=== PATIENT | female | born 1950 | race Caucasian/White ===

== ENCOUNTER 2016-07-28 10:05 | Emergency (ER) | payer MEDICARE, BC, OTHER ==
[~2016-07-28] VITALS: Ht 160 cm; Wt 81.8 kg
[~2016-07-28 10:05] MED LIST: ASPI81TA82 PO; ATOR20TA PO; CALTTAB6 PO; CEPH500C3 PO; GLUCTAB PO; INSU100V2 SQ; INSU100V3 SC; LEVO75TA3 PO; MAXZ25 PO; METO25 PO; MOTI25CH PO; OMEP20TA PO
[2016-07-28 10:07] VITALS: BP 176/81; PULSE 66; RESP 18; TEMP 97.8; O2SAT 96
[2016-07-28] MEDS ORDERED: INSU100V2 SQ (10:24)
[2016-07-28] MEDS ORDERED: ASPI1TAB69 PO (10:24)
[2016-07-28] MEDS ORDERED: ATOR20TA15 PO (10:24)
[2016-07-28] MEDS ORDERED: METF500T PO (10:24)
[2016-07-28] MEDS ORDERED: OMEP20TA PO (10:24)
[2016-07-28] MEDS ORDERED: INSU100V3 SQ (10:24)
[2016-07-28] MEDS ORDERED: MAXZTAB PO (10:24)
[2016-07-28] MEDS ORDERED: METO25TA3 PO (10:24)
[2016-07-28] MEDS ORDERED: LEVO88TA2 PO (10:24)
[2016-07-28] MEDS ORDERED: PRED20 PO (10:29)
[2016-07-28] MEDS ORDERED: ZANT300T PO (10:29)
--- NOTE | 2016-07-28 10:29 | PD ---
HPI Chief Complaint: Facial Pain or Swelling Time Seen by Provider: 10:18 Travel History International Travel<30 days: No Contact w/Intl Traveler<30days: No Traveled to known affect area: No History of Present Illness HPI 66-year-old female complaining the patient itching and swelling. Patient states that the symptoms started 2 days ago. Patient has history of frequent facial swelling itching and rash. 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 Patient denies any fever chills. Patient denies any problem with swallowing. Patient denies any chest pain or shortness of breath. Patient has been taking Zyrtec at home for the itching. PFSH Past Medical History Hx Anticoagulant Therapy: Yes (81MG ASA) Cardiovascular Problems: Yes (HTN) High Cholesterol: Yes Coronary Artery Disease: Yes Diabetes: Yes (TYPE 2 ) GERD: Yes Hypertension: Yes Neurologic: Yes (CHAVEZ'S PALSY) ?: Not Past Surgical History Hysterectomy: Yes Social History Alcohol Use: No Tobacco Use: No Substance Use: No Allergies-Medications (Allergen,Severity, Reaction): Coded Allergies: No Known Allergies (Unverified , 07/28/16) Reported Meds & Prescriptions Reported Meds & Active Scripts Active Reported Maxzide-25 (Triamterene-Hydrochlorothiazide) 37.5-25 Mg Tab 1 Tab PO DAILY Omeprazole 20 Mg Tab 20 Mg PO DAILY Metoprolol Tartrate 25 Mg Tab 25 Mg PO BID Metformin (Metformin HCl) 500 Mg Tab 500 Mg PO QID With meals Levothyroxine (Levothyroxine Sodium) 88 Mcg Tab 88 Mcg PO DAILY Humulin N Inj (Insulin Human NPH) 1,000 Unit/10 Ml Vial 45 Units SQ Humulin R Inj (Insulin Human Regular) 1,000 Unit/10 Ml Vial 35 Units SQ TIDAC Max dose at bedtime:( )units; sugars < 70,(0)units; sugars 150-199,(5)units; sugars 200-249,(10)units; sugars 250-299,(15)units; sugars 300-349,(20)units; sugars more than 349,(25)units. Atorvastatin (Atorvastatin Calcium) 20 Mg Tab 20 Mg PO HS Aspirin 81 Mg Tabdr 81 Mg PO DAILY Review of Systems General / Constitutional: No: Fever Eyes: No: Visual changes HENT: No: Headaches Cardiovascular: No: Chest Pain or Discomfort Respiratory: No: Shortness of Breath Gastrointestinal: No: Abdominal Pain Genitourinary: No: Dysuria Musculoskeletal: No: Pain Skin: Positive Rash, Positive Itching Neurologic: No: Weakness Psychiatric: No: Depression Endocrine: No: Polydipsia Hematologic/Lymphatic: No: Easy Bruising Physical Exam Narrative GENERAL: Well-nourished, well-developed patient. SKIN: Focused skin assessment warm/dry. HEAD: Normocephalic. EYES: No scleral icterus. No injection or drainage. NECK: Supple, trachea midline. No JVD or lymphadenopathy. CARDIOVASCULAR: Regular rate and rhythm without murmurs, gallops, or rubs. RESPIRATORY: Breath sounds equal bilaterally. No accessory muscle use. GASTROINTESTINAL: Abdomen soft, non-tender, nondistended. MUSCULOSKELETAL: No cyanosis, or edema. BACK: Nontender without obvious deformity. No CVA tenderness. Patient has patchy rash on the face and forehead, hives, with mild increase in heat. Nontender on palpation. Data Data Last Documented VS Vital Signs Date Time Temp Pulse Resp B/P Pulse Ox O2 Delivery O2 Flow Rate FiO2 07/28/16 10:07 97.8 66 18 176/81 96 MDM Medical Decision Making Medical Screen Exam Complete: Yes Emergency Medical Condition: Yes Differential Diagnosis Differential diagnosis including contact dermatitis, allergic dermatitis, allergic reaction. Narrative Course 66-year-old female with itching rash on the face. Decadron 8 mg IM. Diagnosis Primary Impression: Allergic dermatitis Patient Instructions: General Instructions Additional Instructions: Continue with Zyrtec as directed. Take medications as directed. Follow-up with personal physician. Return if worse. Med/Other Pt SpecificInfo: Prescription(s) given Scripts Ranitidine (Zantac)300 Mg Vhh192 Mg PO DAILY #10 TAB Ref 0 Prov:Patrice Meyers MD 07/28/16 Prednisone 20 Mg Tab20 Mg PO BID #14 TAB Ref 0 Prov:Patrice Meyers MD 07/28/16 Disposition: 01 DISCHARGE HOME Condition: Stable Patrice Meyers MD Jul 28, 2016 10:29
[2016-07-28] MEDS ORDERED: DEXAMETHASONE SOD PHOS 4 MG/ML VIAL IM ONE (10:30)
== END 2016-07-28 10:48 | disposition home or self-care (01) ==
LOC: PHED 10:05
DX: L23.9 Allergic contact dermatitis, unspecified cause (principal)
CPT/HCPCS: 96372; 99283; J1100

== ENCOUNTER 2017-04-11 10:44 | Emergency (ER) | payer MEDICARE, BC, OTHER ==
[~2017-04-11] VITALS: Ht 157.5 cm; Wt 83.0 kg
[~2017-04-11 10:44] MED LIST changes: +ASPI1TAB69 PO; -ASPI81TA82 PO; -ATOR20TA PO; +ATOR20TA15 PO; -CALTTAB6 PO; -CEPH500C3 PO; -GLUCTAB PO; -INSU100V3 SC; +INSU100V3 SQ; -LEVO75TA3 PO; +LEVO88TA2 PO; -MAXZ25 PO; +MAXZTAB PO; +METF500T PO; -METO25 PO; +METO25TA3 PO; -MOTI25CH PO; -OMEP20TA PO; +OMEP20TA93 PO; +PRED20 PO; +ZANT300T PO
[2017-04-11 10:47] VITALS: BP 221/91; PULSE 60; RESP 16; TEMP 98.3; O2SAT 95
[2017-04-11] MEDS ORDERED: LOSARTAN 50 MG TAB PO ONE (11:15)
[2017-04-11] MEDS ORDERED: HYDROCHLOROTHIAZIDE 25 MG TAB PO ONE (11:15)
[2017-04-11] MEDS ORDERED: ASPI81CH6 CHEW (11:23)
--- NOTE | 2017-04-11 11:24 | RADRPT ---
EXAM DATE/TIME: 04/11/2017 11:10 [facility] COMPARISON: No previous studies available for comparison. INDICATIONS : Cough x 3 days. High blood pressure sent by urgent care. MEDICAL HISTORY : Diabetes mellitus type II. Hypercholesterolemia. Gastroesophageal reflux disease. Garcia's palsy. h ypertension. cad. SURGICAL HISTORY : Hysterectomy. ENCOUNTER: Initial ACUITY: 3 days PAIN SCORE: 0/10 LOCATION: chest FINDINGS: PA and lateral views of the chest demonstrate the lungs to be symmetrically aerated without evidence of mass, infiltrate or effusion. The cardiomediastinal contours are unremarkable. Osseous structure s are intact. CONCLUSION: No acute disease. Josh Simeon Jr., MD on April 11, 2017 at 11:21 Board Certified Radiologist. This report was verified electronically.
[2017-04-11 11:29] VITALS: BP 217/84
--- NOTE | 2017-04-11 11:37 | PD ---
HPI Chief Complaint: Cold / Flu Symptoms Time Seen by Provider: 11:01 Travel History International Travel<30 days: No Contact w/Intl Traveler<30days: No Traveled to known affect area: No History of Present Illness HPI 66-year-old female presents with cough and congestion over the past 3 days. She states she has not taken her blood pressure medication yet this morning. She states she went to an urgent care and because of her pressure they sent her here. She denies any chest pain, shortness of breath, fever or other concurrent complaints. She states her last sugar was 190. She denies specific modifying factors. She states that she follows with her primary doctor regularly. Quality is productive. Severity is frequent per patient. PFSH Past Medical History Hx Anticoagulant Therapy: Yes (81MG ASA) Atrial Fibrillation: Yes Cardiovascular Problems: Yes (HTN) High Cholesterol: Yes Coronary Artery Disease: Yes Diabetes: Yes (TYPE 2 ) Patient Takes Glucophage: No GERD: Yes Hypertension: Yes Neurologic: Yes (CHAVEZ'S PALSY) Influenza Vaccination: No ?: Not Past Surgical History Hysterectomy: Yes Social History Alcohol Use: Yes (RARELY) Tobacco Use: No Substance Use: No Allergies-Medications (Allergen,Severity, Reaction): Coded Allergies: No Known Allergies (Verified Adverse Reaction, Unknown, 04/11/17) Reported Meds & Prescriptions Reported Meds & Active Scripts Active Reported Aspirin Low Dose (Aspirin) 81 Mg Chew 81 Mg CHEW DAILY Maxzide-25 (Triamterene-Hydrochlorothiazide) 37.5-25 Mg Tab 1 Tab PO DAILY Omeprazole 20 Mg Tab 20 Mg PO DAILY Metoprolol Tartrate 25 Mg Tab 25 Mg PO BID Metformin (Metformin HCl) 500 Mg Tab 500 Mg PO QID With meals Levothyroxine (Levothyroxine Sodium) 88 Mcg Tab 75 Mcg PO DAILY Humulin N Inj (Insulin Human NPH) 1,000 Unit/10 Ml Vial 40 Units SQ Humulin R Inj (Insulin Human Regular) 1,000 Unit/10 Ml Vial 30 Units SQ TIDAC Max dose at bedtime:( )units; sugars < 70,(0)units; sugars 150-199,(5)units; sugars 200-249,(10)units; sugars 250-299,(15)units; sugars 300-349,(20)units; sugars more than 349,(25)units. Atorvastatin (Atorvastatin Calcium) 20 Mg Tab 20 Mg PO HS Review of Systems Except as stated in HPI: all other systems reviewed are Neg Physical Exam Narrative General: No apparent distress, well appearing ENT: Posterior oropharyngx clear without exudate or erythema, external auditory canals are normal. Bilateral TM clear Neck: Neck is supple, no meningeal signs, trachea is midline Cardiovascular: Regular rate and rhythm Lungs: No increased respiratory effort noted, CTA bilaterally Abdomen: Soft, NT, ND, no rebound or guarding Extremities: No significant edema to bilateral lower extremities Neuro: Awake, motor and sensation grossly intact, normal speech Skin: Warm and dry Data Data Last Documented VS Vital Signs Date Time Temp Pulse Resp B/P (MAP) Pulse Ox O2 Delivery O2 Flow Rate FiO2 04/11/17 12:23 04/11/17 12:12 71 16 94 Room Air 04/11/17 10:47 98.3 198/97 Orders Orders Chest, Pa & Lat (04/11/17 ) Influenzae A/B Antigen (04/11/17 11:06) Losartan (Cozaar) (04/11/17 11:15) Hydrochlorothiazide (Hydrodiuril) (04/11/17 11:15) Ed Discharge Order (04/11/17 12:09) MDM Medical Decision Making Medical Screen Exam Complete: Yes Emergency Medical Condition: Yes Medical Record Reviewed: Yes (past history confirmed) Interpretation(s) Last 24 hours Impressions Chest X-Ray 04/11/17 0000 Signed Impressions: Service Date/Time: Tuesday, April 11, 2017 11:10 - CONCLUSION: No acute disease. Josh Simeon Jr., MD Differential Diagnosis Pneumonia, URI, hypertension Narrative Course Patient well appearing on exam. Will check chest x-ray, influenza and dose with patient's home blood pressure medication cxr and flu no acute, bp improving after home meds, Patient denies any new complaints and states that they are feeling better. Patient happy with care, all questions answered. Patient knows that follow up is incumbent on them and to return to the emergency room immediately if new or worsening symptoms develop. Patient given strict return precautions, vitals reviewed and are normal , agrees to further workup as an outpatient with blood pressure log. Diagnosis Primary Impression: Upper respiratory infection Qualified Codes: J06.9 - Acute upper respiratory infection, unspecified Additional Impression: Hypertension Qualified Codes: I10 - Essential (primary) hypertension Patient Instructions: General Instructions Additional Instructions: keep blood pressure log, follow with primary friday, tylenol as needed, continue supportive care Med/Other Pt SpecificInfo: No Change to Meds Disposition: 01 DISCHARGE HOME Condition: Stable Jackeline Patel MD Apr 11, 2017 11:36
[2017-04-11 12:12] VITALS: BP 198/89; PULSE 71; RESP 16; O2SAT 94
== END 2017-04-11 12:24 | disposition home or self-care (01) ==
LOC: PHED 10:44
DX: J06.9 Acute upper respiratory infection, unspecified (principal); I10 Essential (primary) hypertension; I48.91 Unspecified atrial fibrillation; E78.00 Pure hypercholesterolemia, unspecified; I25.10 Atherosclerotic heart disease of native coronary artery without angina pectoris; E11.9 Type 2 diabetes mellitus without complications; K21.9 Gastro-esophageal reflux disease without esophagitis; Z79.82 Long term (current) use of aspirin; Z79.4 Long term (current) use of insulin
CPT/HCPCS: 71020; 87804; 99284